=== PATIENT | male | born 1990 | race American Indian/Alaskan Native ===

== ENCOUNTER 2022-12-28 11:08 | Emergency (ER) | payer MEDICAID, OTHER ==
[2022-12-28] MEDS ORDERED: Meclizine 25 MG Tab PO ONE (11:41)
[2022-12-28] MEDS ORDERED: Tranexamic Acid 1,000 MG/10 ML Vial TOP ONE (11:46)
[2022-12-28] MEDS ORDERED: Silver Nitrate Applicator Each TOP ONE (12:38)
== END 2022-12-28 12:55 ==
LOC: JP.ED 11:08
DX: S01.312A Laceration without foreign body of left ear, initial encounter (principal); R55 Syncope and collapse
CPT/HCPCS: 93010; 99284